=== PATIENT | male | born 1940 | race Caucasian/White ===

== ENCOUNTER → 2021-02-10 | Day surgery (SDC) | payer MEDICARE, MEDICAID ==
[~2021-02-10] VITALS: Ht 170.2 cm; Wt 56.7 kg
[~2021-02-10] MED LIST: ALLO100T PO; AMLO2.5T45 PO; ASPI-1497 PO; ATOR40TA70 PO; BALANCED SALT IRRIG SOLN 15ML ONE; BALANCED SALT IRRIG SOLN COMB1 500ML OP ONE; CIPROFLOXACIN 0.3% OPHTH SOLN 2.5ML ONE; CYCLOPENTOLATE HCL 1% OPHTH DROPS 2ML ONE; CYCLOPENTOLATE HCL 1% OPHTH DROPS 2ML RIGHTEYE ONE; FENTANYL CITRATE/PF 50MCG/ML 2ML VIAL ONE; FINA5TAB11 PO; GLIP2.5T3 PO; HYALURONATE SODIUM 10 MG/ML 0.55ML SYRINGE IO ONE; LIDOCAINE HCL/PF 2% 20 MG/ML 10ML VIAL ONE; LOSA25TA26 PO; MIDAZOLAM HCL 2 MG/2 ML VIAL ONE; NEO/POLYMYX B SULF/DEXAMETH OPHTH OINT 3.5GM ONE; PHENYLEPHRINE HCL 10% OPHTH DROPS 5ML ONE; PHENYLEPHRINE HCL 10% OPHTH DROPS 5ML RIGHTEYE ONE; PREDNISOLONE ACETATE 1% OPHTH DROPS 5ML ONE; SODIUM CHLORIDE 0.9% 1,000 ML IV SCH; TAMS-11 PO; TETRACAINE 0.5% OPHTH DROPS 4ML ONE; TROPICAMIDE 1% OPHTH DROPS 15ML ONE; TROPICAMIDE 1% OPHTH DROPS 15ML RIGHTEYE ONE
== END | disposition home or self-care (01) ==
LOC: OR 08:01
PROVIDERS: ATTEND Ophthalmology
DX: E11.36 Type 2 diabetes mellitus with diabetic cataract (principal); H25.89 Other age-related cataract; I10 Essential (primary) hypertension; E78.00 Pure hypercholesterolemia, unspecified; M10.9 Gout, unspecified; N40.0 Benign prostatic hyperplasia without lower urinary tract symptoms; Z79.82 Long term (current) use of aspirin; Z79.84 Long term (current) use of oral hypoglycemic drugs; Z79.899 Other long term (current) drug therapy; Z98.890 Other specified postprocedural states
CPT/HCPCS: 66984; 82962; J2250; J3010; J3490; V2632

== ENCOUNTER → 2021-04-21 | Day surgery (SDC) | payer MEDICARE, MEDICAID ==
[~2021-04-21] VITALS: Ht 170.2 cm; Wt 56.7 kg
[~2021-04-21] MED LIST changes: +CYCLOPENTOLATE HCL 1% OPHTH DROPS 2ML LEFTEYE ONE; -CYCLOPENTOLATE HCL 1% OPHTH DROPS 2ML RIGHTEYE ONE; -LIDOCAINE HCL/PF 2% 20 MG/ML 10ML VIAL ONE; +PHENYLEPHRINE HCL 10% OPHTH DROPS 5ML LEFTEYE ONE; -PHENYLEPHRINE HCL 10% OPHTH DROPS 5ML RIGHTEYE ONE; +TROPICAMIDE 1% OPHTH DROPS 15ML LEFTEYE ONE; -TROPICAMIDE 1% OPHTH DROPS 15ML RIGHTEYE ONE
== END | disposition home or self-care (01) ==
LOC: OR 06:30
PROVIDERS: ATTEND Ophthalmology
DX: H25.89 Other age-related cataract (principal); I10 Essential (primary) hypertension; E78.00 Pure hypercholesterolemia, unspecified; N40.0 Benign prostatic hyperplasia without lower urinary tract symptoms; M10.9 Gout, unspecified; F32.9 Major depressive disorder, single episode, unspecified; Z79.82 Long term (current) use of aspirin; Z79.899 Other long term (current) drug therapy; Z98.890 Other specified postprocedural states
CPT/HCPCS: 66984; 82962; J2250; J3010; J3490; V2632